=== PATIENT | female | born 1955 | race Two or more races ===

== ENCOUNTER 2020-05-08 18:35 | Emergency (ER) | payer MEDICAID ==
[2020-05-08] MEDS ORDERED: LORazepam 2 MG/ML SDV IVPUSH ONE ×3 (18:40→20:12)
[2020-05-08] MEDS ORDERED: chlordiazePOXIDE 25 MG Cap PO ONE (18:41)
[2020-05-08] MEDS ORDERED: Sodium Chloride 0.9% 1,000 ML IV ONE (18:41)
--- NOTE | 2020-05-08 18:46 | EDM.PDOC ---
ED HPI GENERAL MEDICAL PROBLEM - General Chief Complaint: Drug or Alcohol Abuse Stated Complaint: EMS ARRIVAL Time Seen by Provider: 05/08/20 18:40 Source of Information: Reports: EMS History Limitations: Reports: Altered Mental Status - History of Present Illness INITIAL COMMENTS - FREE TEXT/NARRATIVE: 65-year-old female past medical history COPD, hypertension, alcoholism presents for agitation. Patient was seen at [facility] this morning and diagnosed with influenza A, any urinary tract infection, hyponatremia to 111, alcohol withdrawal, multiple rib fractures. She has been accepted by at [facility]. The patient was being brought by BLS crew, and in route she was noted to become agitated, tachycardic to 130s. The BLS crew did not have means to sedate the patient, and they were concerned for their safety and the patient safety. The original emergency department was called for recommendations and recommended that they stop here for reassessment, stabilization, and transfer to [facility] for transport. The patient received 2 mg of Ativan at the initial emergency department, and an additional 1 mg of Ativan just prior to transport. When she left the original emergency department her heart rate was in the low 100s, she was normotensive, calm and cooperative, confused and AAOx1 ED ROS GENERAL - Review of Systems Review Of Systems: Unable To Obtain (AMS) Reason Not Obtained: ams ED EXAM, GENERAL - Physical Exam Exam: See Below Exam Limited By: Altered Mental Status General Appearance: Alert, Anxious, Other (tremors) Eye Exam: Bilateral Eye: PERRL Throat/Mouth: Normal Voice, No Airway Compromise Head: Atraumatic, Normocephalic Neck: Normal Inspection Respiratory/Chest: No Respiratory Distress, Lungs Clear, Normal Breath Sounds, No Accessory Muscle Use Cardiovascular: Normal Peripheral Pulses, Tachycardia GI/Abdominal: Soft, Non-Tender Extremities: Normal Inspection Neurological: Alert Skin Exam: Warm, Dry Course - Orders/Labs/Meds Orders: Active Orders 24 hr Category Date Time Status Sodium Chloride 0.9% [Normal Saline] 1,000 ml Med 05/08/20 18:41 Active IV .Bolus Medication Orders Sodium Chloride (Normal Saline) 1,000 mls @ 999 mls/hr IV .Bolus ONE Stop: 05/08/20 19:41 Meds: Medications Generic Name Dose Route Start Last Admin Trade Name Freq PRN Reason Stop Dose Admin Sodium Chloride 1,000 mls @ 999 mls/hr 05/08/20 18:41 Normal Saline IV 05/08/20 19:41 .Bolus ONE Discontinued Medications Generic Name Dose Route Start Last Admin Trade Name Maral PRN Reason Stop Dose Admin Chlordiazepoxide HCl 50 mg 05/08/20 18:41 Librium PO 05/08/20 18:42 ONETIME ONE Lorazepam 2 mg 05/08/20 18:40 Ativan IVPUSH 05/08/20 18:41 ONETIME ONE - Re-Assessments/Exams Free Text/Narrative Re-Assessment/Exam: 05/08/20 18:45 The original emergency department fax over all of the patient's results, I do not see the utility in repeating labs at this time. We will give 2 mg of Ativan, 50 mg of Librium, and an additional 1 L IV fluid bolus. We will obstipation after these medications, and call ALS for transport to [place]. Departure - Departure Time of Disposition: 18:57 Disposition: DC/Tfer to Acute Hospital 02 Condition: Serious Clinical Impression: Alcohol withdrawal delirium - Discharge Information Forms: ED Department Discharge - My Orders Last 24 Hours: My Active Orders 05/08/20 18:41 Sodium Chloride 0.9% [Normal Saline] 1,000 ml IV .Bolus - Assessment/Plan Last 24 Hours: My Active Orders 05/08/20 18:41 Sodium Chloride 0.9% [Normal Saline] 1,000 ml IV .Bolus
[2020-05-08] MEDS ORDERED: LORazepam 2 MG/ML SDV ONE ×2 (19:11→20:22)
== END 2020-05-08 20:30 ==
LOC: MW.ED 18:35
DX: F10.231 Alcohol dependence with withdrawal delirium (principal); J44.9 Chronic obstructive pulmonary disease, unspecified; I10 Essential (primary) hypertension
CPT/HCPCS: 96374; 99285; J2060; J7030; 99284